=== PATIENT | male | born 1940 | race Caucasian/White ===

== ENCOUNTER 2017-08-04 14:00 | Emergency (ER) | payer MEDICARE, OTHER ==
--- NOTE | 2017-08-04 14:52 | ER Document Report ---
ED Medical Screen (RME) - General Chief Complaint: Fall Injury Stated Complaint: FALL BACK AND LEG PAIN Time Seen by Provider: 08/04/17 14:49 Notes: Patient is a poor historian due to baseline dementia. He has brought in by ronnacierra. Sharita states that his stepfather fell in the yard but he did not witness it. He is unsure of the details. Patient has no complaints at triage. TRAVEL OUTSIDE OF THE [place] 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
[2017-08-04 15:22] LABS: ABSOLUTE EOSINOPHILS # (AUTO) 0.2 10^3/uL (0.0-0.6); ABSOLUTE LYMPHOCYTES (AUTO) 2.2 10^3/uL (0.5-4.7); ABSOLUTE MONOCYTES (AUTO) 0.8 10^3/uL (0.1-1.4); ABSOLUTE NEUT (AUTO) 10.8 10^3/uL (1.7-8.2); BASOPHILS % (AUTO) 0.3 % (0-2); EOSINOPHILS % (AUTO) 1.3 % (0-6); HEMATOCRIT 43.8 % (37.9-51.0); HGB HCT DIFFERENCE 1.2; LYMPHOCYTES % (AUTO) 15.6 % (13-45); MEAN CORPUSCULAR HEMOGLOBIN 31.8 pg (27.0-33.4); MEAN CORPUSCULAR HGB CONC 34.3 g/dL (32.0-36.0); MEAN CORPUSCULAR VOLUME 93 fl (80-97); MONOCYTES % (AUTO) 5.4 % (3-13); RED BLOOD COUNT 4.72 10^6/uL (4.35-5.55); RED CELL DISTRIBUTION WIDTH 13.2 % (11.5-14.0); SEGMENTED NEUTROPHILS % (AUTO) 77.4 % (42-78); WHITE BLOOD COUNT 13.9 10^3/uL (4.0-10.5)
[2017-08-04 15:32] LABS: ALANINE AMINOTRANSFERASE 36 U/L (21-72); ALBUMIN 4.1 g/dL (3.5-5.0); ALKALINE PHOSPHATASE 62 U/L (38-126); ANION GAP 11 (5-19); ASPARTATE AMINO TRANSFERASE 40 U/L (17-59); BILIRUBIN,DIRECT 0.1 mg/dL (0.0-0.4); BILIRUBIN,TOTAL 0.4 mg/dL (0.2-1.3); BLOOD UREA NITROGEN 15 mg/dL (7-20); CALCIUM 9.7 mg/dL (8.4-10.2); CARBON DIOXIDE 27 mmol/L (22-30); CHLORIDE 106 mmol/L (98-107); CREATININE RESULT 0.78 mg/dL (0.52-1.25); GLUCOSE 103 mg/dL (75-110); SODIUM 143.8 mmol/L (137-145); TOTAL PROTEIN 6.5 g/dL (6.3-8.2)
--- NOTE | 2017-08-04 15:37 | RADIOLOGY REPORT (SQ) ---
EXAM DESCRIPTION: CT HEAD WITHOUT COMPLETED DATE/TIME: 08/04/2017 3:10 pm REASON FOR STUDY: fall COMPARISON: None. TECHNIQUE: Axial images acquired through the brain without intravenous contrast. Images reviewed wi th bone, brain and subdural windows. Images stored on PACS. All CT scanners at this facility use dose modulation, iterative reconstruction, and/or weight based d osing when appropriate to reduce radiation dose to as low as reasonably achievable (ALARA). [facility]: Dose Right [facility]: CareDose [facility]: Dose Right [facility]: Teradose 4D [facility]: GiveForward RADIATION DOSE: CT Rad equipment meets quality standard of care and radiation dose reduction techniq ues were employed. CTDIvol: 64.6 - 67.0 mGy. DLP: 2479 mGy-cm. mGy. LIMITATIONS: None. FINDINGS: VENTRICLES: Prominent ventricles secondary to involutional atrophy. CEREBRUM: No masses. No hemorrhage. No midline shift. No evidence for acute infarction. Few scatte red areas of low density in the white matter most likely chronic small vessel ischemic changes. Mode rate cortical atrophy is present. CEREBELLUM: No masses. No hemorrhage. No alteration of density. No evidence for acute infarction. EXTRAAXIAL SPACES: No fluid collections. No masses. ORBITS AND GLOBE: No intra- or extraconal masses. Normal contour of globe without masses. CALVARIUM: No fracture. PARANASAL SINUSES: No fluid or mucosal thickening. SOFT TISSUES: No mass or hematoma. OTHER: No other significant finding. IMPRESSION: Involutional changes of aging with chronic microvascular ischemia and no acute intracran ial findings. EVIDENCE OF ACUTE STROKE: NO. COMMENT: Quality ID # [id number]: Final reports with documentation of one or more dose reduction techniques (e.g., Automated exposure control, adjustment of the mA and/or kV according to patient size, use of iterative reconstruction technique) TECHNICAL DOCUMENTATION: JOB ID: [id number] [employer]- All Rights Reserved
[2017-08-04] MEDS ORDERED: DEXAMETHASONE 4 MG TABLET PO ONE (15:55)
[2017-08-04] MEDS ORDERED: LIDOCAINE 5% (700 MG) TRANSDERMAL ADH..PATCH TP ONE (15:55)
--- NOTE | 2017-08-04 15:57 | ER Document Report ---
ED General - General Chief Complaint: Fall Injury Stated Complaint: FALL BACK AND LEG PAIN Time Seen by Provider: 08/04/17 14:49 TRAVEL OUTSIDE OF THE [place] IN LAST 30 DAYS: No - HPI Patient complains to provider of: Patient coming in after a fall. Notes: Patient has a history of dementia coming in for evaluation of her fall. Fall was unwitnessed. Upon my evaluation patient is walking around room #13 trying to leave. Patient complains of only right knee pain.Patient otherwise looks to be no obvious distress. - Related Data Allergies/Adverse Reactions: No Known Allergies Allergy (Verified 08/04/17 16:04) Past Medical History - Social History Smoking Status: Current Every Day Smoker Frequency of alcohol use: None Drug Abuse: None Family History: Reviewed & Not Pertinent Patient has suicidal ideation: No Patient has homicidal ideation: No - Past Medical History Cardiac Medical History: Reports: Hx Heart Attack - Denies: Hx Coronary Artery Disease, Hx Hypertension Pulmonary Medical History: Denies: Hx Asthma, Hx Bronchitis, Hx COPD, Hx Pneumonia Neurological Medical History: Denies: Hx Cerebrovascular Accident, Hx Seizures Renal/ Medical History: Denies: Hx Peritoneal Dialysis Musculoskeltal Medical History: 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 Past Surgical History: Denies: Hx Pacemaker - Immunizations Hx Diphtheria, Pertussis, Tetanus Vaccination: No Review of Systems - Review of Systems -: Yes ROS unobtainable due to patient's medical condition - History of dementia Physical Exam - Vital signs Vitals: Temp Pulse Resp BP Pulse Ox 100.2 F 93 20 135/87 H 97 08/04/17 14:09 08/04/17 14:09 08/04/17 14:09 08/04/17 14:09 08/04/17 14:09 Interpretation: Normal - General General appearance: Appears well, Alert - HEENT Head: Normocephalic, Atraumatic Eyes: Normal Pupils: PERRL - Respiratory Respiratory status: No respiratory distress Chest status: Nontender Breath sounds: Normal Chest palpation: Normal - Cardiovascular Rhythm: Regular Heart sounds: Normal auscultation Murmur: No - Abdominal Inspection: Normal Distension: No distension Bowel sounds: Normal Tenderness: Nontender Organomegaly: No organomegaly - Back Back: Normal, Nontender - Extremities General upper extremity: Normal inspection, Nontender, Normal color, Normal ROM , Normal temperature General lower extremity: Nontender, Normal color, Normal ROM, Normal temperature , Normal weight bearing. No: Normal inspection - Abrasion to the right knee no tenderness to palpation no tenderness or laxity on valgus varus anterior posterior drawer testing., Zaheer's sign - Neurological Neuro grossly intact: Yes Motor strength normal: LUE, RUE, LLE, RLE Sensory: Normal - Skin Skin Temperature: Warm Skin Moisture: Dry Skin Color: Normal Course - Re-evaluation Re-evalutation: 08/04/17 18:18 Patient does have an abrasion to the right knee is no tenderness to palpation. CT of the head is negative lab work is negative. Patient will be discharged on follow-up primary care physician. Patient was given a dose of Decadron for possible underlying back pain. - Vital Signs Vital signs: Temp Pulse Resp BP Pulse Ox 100.2 F 93 16 137/75 H 93 08/04/17 14:09 08/04/17 16:33 08/04/17 16:33 08/04/17 16:33 08/04/17 16:33 - Laboratory Result Diagrams: 08/04/17 15:00 08/04/17 15:00 Laboratory results interpreted by me: 08/04/17 15:00 WBC 13.9 H Absolute Neutrophils 10.8 H Discharge - Discharge Clinical Impression: fall Knee pain Qualifiers: Chronicity: acute Laterality: right Qualified Code(s): M25.561 - Pain in right knee Condition: Good Disposition: HOME, SELF-CARE Instructions: Abrasions ([facility]), Low Back Pain ([facility]) Additional Instructions: Your CAT scan today does not reveal any significant pathology.Examination of her knee only reveals an abrasion. I would recommend that we gave you a dose of steroids to help out with your back pain knee pain. I also recommend taking Tylenol for your pain at home. He may also use a lidocaine patch to be gave you here in ER to help out with your pain. Return to ER symptoms worsen. Please create an environment to prevent falls. Referrals: TIKA MATOS MD [Primary Care Provider] - Follow up as needed
[2017-08-04 16:35] VITALS: BP 137/75
== END 2017-08-04 16:35 | disposition home or self-care (01) ==
LOC: ER 14:00
DX: S80.211A Abrasion, right knee, initial encounter (principal); M25.561 Pain in right knee; W10.9XXA Fall (on) (from) unspecified stairs and steps, initial encounter; F03.90 Unspecified dementia, unspecified severity, without behavioral disturbance, psychotic disturbance, mood disturbance, and anxiety; F17.200 Nicotine dependence, unspecified, uncomplicated; I25.2 Old myocardial infarction
CPT/HCPCS: 99284; 36415; 85025; 80053; 70450; A9270

== ENCOUNTER 2019-04-23 16:32 | Emergency (ER) | payer MEDICARE ==
[2019-04-23 16:52] VITALS: BP 91/69
== END 2019-04-23 17:46 | disposition left against medical advice (07) ==
LOC: ER 16:32
DX: Z53.21 Procedure and treatment not carried out due to patient leaving prior to being seen by health care provider (principal)

== ENCOUNTER 2019-10-05 13:30 | Emergency (ER) | payer MEDICARE ==
[2019-10-05] MEDS ORDERED: NORMAL SALINE 1000 ML 1,000 ML IV ONE ×2 (13:40→15:31)
--- NOTE | 2019-10-05 13:43 | ER Document Report ---
ED General - General Chief Complaint: General Weakness Stated Complaint: GENERAL WEAKNESS Primary Care Provider: TIKA MATOS MD [Primary Care Provider] - Follow up as needed Mode of Arrival: Medic Information source: Relative - son Notes: 78-year-old man history of dementia according to family having a difficult time with fluids and eating at this time. No known fever, cough or other systemic symptoms. They were having difficulty getting him to walk and EMS notes that they were able to walk him to the ambulance with some assistance. Patient is unable to give a history as he is nonverbal and clinically looks dry. TRAVEL OUTSIDE OF THE [place] IN LAST 30 DAYS: No - Related Data Allergies/Adverse Reactions: No Known Allergies Allergy (Verified 04/23/19 16:34) Past Medical History - Social History Smoking Status: Unknown if Ever Smoked Family History: Reviewed & Not Pertinent - Past Medical History Cardiac Medical History: Reports: Hx Heart Attack - Denies: Hx Coronary Artery Disease, Hx Hypertension Pulmonary Medical History: Denies: Hx Asthma, Hx Bronchitis, Hx COPD, Hx Pneumonia Neurological Medical History: Denies: Hx Cerebrovascular Accident, Hx Seizures Renal/ Medical History: Denies: Hx Peritoneal Dialysis Musculoskeletal Medical History: 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 Past Surgical History: Denies: Hx Pacemaker - Immunizations Hx Diphtheria, Pertussis, Tetanus Vaccination: No Review of Systems - Review of Systems -: Yes ROS unobtainable due to patient's medical condition - Late stage dementia, son notes that he has stopped chewing or eating Physical Exam - Vital signs Vitals: Pulse Resp BP Pulse Ox 87 16 123/71 96 10/05/19 13:59 10/05/19 13:59 10/05/19 13:59 10/05/19 13:59 - Notes Notes: PHYSICAL EXAMINATION: Physical Exam: General: Frail 78-year-old man obviously dehydrated with dry tongue and nonverbal HEENT: NC/AT, pupils equal round and reactive to light, MM dry, tongue dry,nares clear, oropharynx clear, airway patent Neck: supple, no adenopathy, no masses. Good range of motion Lungs: clear, no wheezing, no rales no rhonchi CVS: Regular rate and rhythm no murmur gallop or rub Abdomen: Soft, active, nontender, no masses, no hepatosplenomegaly Ext: No edema, clubbing or cyanosis. Neuro: Poorly responsive, lying on the stretcher with his mouth open and no other spontaneous movement Skin: Intact no open lesions, no rash Course - Re-evaluation Re-evalutation: 10/05/19 17:36 Patient is given a total of 3 L of fluid, sodium was noted to be 160, I discussed these findings with the son and asked him to continue to try oral hydration at home. Home health nursing will be coming to the home tomorrow and home hospice on Tuesday. - Vital Signs Vital signs: Temp Pulse Resp BP Pulse Ox 99.5 F 87 16 141/68 H 95 10/05/19 14:30 10/05/19 13:59 10/05/19 19:01 10/05/19 19:00 10/05/19 19:01 - Laboratory Result Diagrams: 10/05/19 14:15 10/05/19 14:15 Laboratory results interpreted by me: 10/05/19 10/05/19 14:15 14:15 WBC 12.6 H RDW 15.2 H Absolute Neuts (auto) 9.2 H Sodium 160.1 H Chloride 126 H BUN 31 H Glucose 115 H - Diagnostic Test Radiology reviewed: Image reviewed, Reports reviewed - Chest x-ray 1 view: No acute infiltrate or exudate. Discharge - Discharge Clinical Impression: Senile dementia of Alzheimer's type, Dehydration, Hypernatremia, Generalized weakness Condition: Good Disposition: HOME, SELF-CARE Instructions: Dehydration ([facility]), Dementia ([facility]) Additional Instructions: Patient was diagnosed with dehydration in the emergency department and given 3 L of fluid here. Please continue to offer fluids at home, home health nursing will be at the house tomorrow and hospice nursing on Tuesday. Given his continued late stage dementia aggressive intervention would not be advised at this time. Referrals: TIKA MATOS MD [Primary Care Provider] - Follow up as needed
[2019-10-05] MEDS ORDERED: LIDOCAINE 2% URO-JET 5 ML KIT MM ONE (14:03)
[2019-10-05 14:45] LABS: ABSOLUTE BASOPHILS # (AUTO) 0.1 10^3/uL (0.0-0.2); ABSOLUTE EOSINOPHILS # (AUTO) 0.1 10^3/uL (0.0-0.6); ABSOLUTE LYMPHOCYTES (AUTO) 2.5 10^3/uL (0.5-4.7); ABSOLUTE MONOCYTES (AUTO) 0.7 10^3/uL (0.1-1.4); ABSOLUTE NEUT (AUTO) 9.2 10^3/uL (1.7-8.2); BASOPHILS % (AUTO) 0.6 % (0-2); EOSINOPHILS % (AUTO) 0.8 % (0-6); HEMATOCRIT 43.2 % (37.9-51.0); HEMOGLOBIN 14.6 g/dL (13.5-17.0); LYMPHOCYTES % (AUTO) 19.6 % (13-45); MEAN CORPUSCULAR HEMOGLOBIN 32.2 pg (27.0-33.4); MEAN CORPUSCULAR HGB CONC 33.7 g/dL (32.0-36.0); MEAN CORPUSCULAR VOLUME 95 fl (80-97); MONOCYTES % (AUTO) 5.5 % (3-13); PLATELET COUNT 153 10^3/uL (150-450); RED BLOOD COUNT 4.53 10^6/uL (4.35-5.55); RED CELL DISTRIBUTION WIDTH 15.2 % (11.5-14.0); SEGMENTED NEUTROPHILS % (AUTO) 73.5 % (42-78); TOTAL CELLS COUNTED % (AUTO) 100 %; WHITE BLOOD COUNT 12.6 10^3/uL (4.0-10.5)
[2019-10-05 15:07] LABS: ALBUMIN 3.8 g/dL (3.5-5.0); ALKALINE PHOSPHATASE 70 U/L (38-126); ANION GAP 5 (5-19); ASPARTATE AMINO TRANSFERASE 32 U/L (17-59); BILIRUBIN,DIRECT 0.2 mg/dL (0.0-0.4); BILIRUBIN,TOTAL 1.1 mg/dL (0.2-1.3); BLOOD UREA NITROGEN 31 mg/dL (7-20); CALCIUM 9.4 mg/dL (8.4-10.2); CARBON DIOXIDE 29 mmol/L (22-30); CHLORIDE 126 mmol/L (98-107); GLUCOSE 115 mg/dL (75-110); POTASSIUM 3.8 mmol/L (3.6-5.0)
--- NOTE | 2019-10-05 15:12 | RADIOLOGY REPORT (SQ) ---
EXAM DESCRIPTION: CHEST SINGLE VIEW COMPLETED DATE/TIME: 10/05/2019 2:34 pm REASON FOR STUDY: [place] COMPARISON: None. EXAM PARAMETERS: NUMBER OF VIEWS: One view. TECHNIQUE: Single frontal radiographic view of the chest acquired. RADIATION DOSE: NA LIMITATIONS: None. FINDINGS: LUNGS AND PLEURA: No opacities, masses or pneumothorax. No pleural effusion. MEDIASTINUM AND HILAR STRUCTURES: No masses. Contour normal. HEART AND VASCULAR STRUCTURES: Heart normal in size. Normal vasculature. BONES: No acute findings. HARDWARE: None in the chest. OTHER: No other significant finding. IMPRESSION: NO ACUTE RADIOGRAPHIC FINDING IN THE CHEST. TECHNICAL DOCUMENTATION: JOB ID: [id number] 2010 [employer]- All Rights Reserved Reading location - IP/workstation name: [email or web address]
[2019-10-05] MEDS ORDERED: RINGERS SOLUTION,LACTATED 1,000 ML IV ONE ×2 (15:34→16:42)
--- NOTE | 2019-10-05 18:42 | EKG REPORT ---
SEVERITY:- NORMAL ECG - SINUS RHYTHM : Confirmed by: Viraj Call 05-Oct-2019 18:41:43
[2019-10-05 20:08] VITALS: BP 141/68
== END 2019-10-05 20:08 | disposition home or self-care (01) ==
LOC: ER 13:30
DX: E86.0 Dehydration (principal); E87.0 Hyperosmolality and hypernatremia; G30.9 Alzheimer's disease, unspecified; F02.80 Dementia in other diseases classified elsewhere, unspecified severity, without behavioral disturbance, psychotic disturbance, mood disturbance, and anxiety; R53.1 Weakness; R63.3 Feeding difficulties
CPT/HCPCS: 93005; 36415; 87040; 83605; 85025; 80053; 71045; 93010; J7030; J7120; A9270; 96360; 96361; 99285; J3490